=== PATIENT | male | born 1990 | race African-American/Black ===

== ENCOUNTER 2019-07-22 12:01 | Emergency (ER) | payer OTHER, SELFPAY ==
--- NOTE | ~2019-07-22 | XR_ITS ---
EXAMINATION: XR tibia fibula LT 2V DATE: 07/22/2019 12:55 INDICATION: Left lower leg injury and pain. TECHNIQUE: 2 views of left tibia and fibula were obtained. COMPARISON: None. FINDINGS: Bone alignment is normal. No fracture. The ankle joint is normal. IMPRESSION: 1. Normal left tibia and fibula. Reviewed, dictated and finalized at location A.
--- NOTE | ~2019-07-22 | XR_ITS ---
EXAMINATION: XR femur LT min 2V DATE: 07/22/2019 12:55 INDICATION: Left thigh injury and pain. TECHNIQUE: 2 views of left femur on 4 radiographs were obtained. COMPARISON: None. FINDINGS: Bone alignment is normal. No fracture. There is mild left hip osteoarthritis. There is mild osteoarthritis of medial compartment of the knee. IMPRESSION: 1. Mild polyarticular osteoarthritis. Reviewed, dictated and finalized at location A.
--- NOTE | ~2019-07-22 | XR_ITS ---
EXAMINATION: XR knee LT 3V DATE: 07/22/2019 12:55 INDICATION: Left knee injury and pain. TECHNIQUE: 3 views of left knee were obtained. COMPARISON: None. FINDINGS: Bone alignment is normal. No fracture. There is mild osteoarthritis of medial compartment. There is no knee joint effusion. IMPRESSION: 1. Mild left knee osteoarthritis. Reviewed, dictated and finalized at location A.
[2019-07-22 12:10] VITALS: BP 105/60; PULSE 62; RESP 18; TEMP 36.3; O2SAT 100
--- NOTE | 2019-07-22 12:34 | ED.LOWEXIN ---
HPI - Extremity Injury (Lower) General Chief Complaint: Extremity Injury, Lower Stated Complaint: left knee injury Time Seen by Provider: 07/22/19 12:13 Source: patient Mode of arrival: wheelchair Limitations: no limitations History of Present Illness HPI Narrative: This is a 28 year old male that presents to the ER for left knee injury yesterday. Reports he twisted the knee yesterday and it popped out of place. Reports history of similar occurrence in the past. Reports he has not been able bear weight on the leg due to pain. Denies other injuries, weakness, or numbness. Related Data Home Medications Medication Instructions Recorded Confirmed No Home Medications 07/22/19 07/22/19 Allergies Allergy/AdvReac Type Severity Reaction Status Date / Time No Known Allergies Allergy Verified 07/22/19 12:11 Review of Systems Review of Systems: Narrative: CONSTITUTIONAL: Denies fever MUSCULOSKELETAL: Reports joint pain, and myalgia. NEUROLOGIC: Denies numbness, or weakness. All systems reviewed & are unremarkable except as noted in HPI and below PMFSH Past Medical History Medical History (Updated 07/22/19 @ 13:39 by Betty Cuello PA-C) No active medical problems Social History Social History (Updated 07/22/19 @ 12:35 by Betty Cuello PA-C) Substance use: never Exam Narrative: Exam Narrative: GENERAL: Well-appearing, well-nourished, and in no acute distress. HEAD: Normocephalic, atraumatic. EYES: EOMI. EXTREMITIES: Normal range of motion, except decreased ROM in the left knee due to pain. No edema or obvious deformity. Normal sensation. Normal DP pulses SKIN: Warm, dry, no rash. NEURO: No focal deficits. Alert and oriented x3. PSYCH: Normal mood and affect Course Vital Signs Vital signs: Vital Signs Temperature 97.4 F L 07/22/19 12:10 Pulse Rate 62 07/22/19 12:10 Respiratory Rate 18 07/22/19 12:10 Blood Pressure 105/60 07/22/19 12:10 Pulse Oximetry 100 07/22/19 12:10 Temperature 97.4 F L 07/22/19 12:10 Pulse Rate 62 07/22/19 12:10 Respiratory Rate 18 07/22/19 12:10 Blood Pressure 105/60 07/22/19 12:10 Pulse Oximetry 100 07/22/19 12:10 MDM - Extremity Injury (Lower) MDM Narrative Medical decision making narrative: Patient presents the emergency department after left knee injury yesterday. Reports twisting the knee and feeling a pop. Left knee, tib-fib, and femur x-rays are without acute changes. Patient placed in a knee immobilizer and given crutches. He was instructed to rest, ice, elevate and take [id number] pain medication as needed. He is to follow-up with orthopedics. Patient was given warnings to return to the ER Imaging Data Radiologist's impression: ITS Impressions Knee X-Ray 07/22/19 12:57 IMPRESSION: 1. Mild left knee osteoarthritis. Tibia/Fibula X-Ray 07/22/19 12:58 IMPRESSION: 1. Normal left tibia and fibula. Femur X-Ray 07/22/19 12:59 IMPRESSION: 1. Mild polyarticular osteoarthritis. Critical Care Time Critical Care Time Critical Care Time: No Discharge Plan Discharge Clinical Impression: Left knee sprain Qualifiers: Encounter type: initial encounter Involved ligament of knee: unspecified ligament Qualified Code(s): S83.92XA - Sprain of unspecified site of left knee, initial encounter Patient Disposition: Home, Self-Care Condition: Stable Instructions: Knee Sprain (ED) Additional Instructions: Return to the ER if you experience fever, redness and swelling of your leg, or any other symptoms that are concerning to you Wear knee immobilizer and use crutches. No weight on the affected leg. Ice and elevate extremity. Pain medication as needed and directed. Follow up with orthopedics Prescriptions: No Action No Home Medications RF: 0 Follow-up/Referrals: Choco Jalloh MD [Physician] - 1 Week PHYSICIAN,BEATER ENGINEER HELPER [Primary Care Provider] -
[2019-07-22 14:24] VITALS: BP 112/70; PULSE 80; RESP 20; TEMP 36.7; O2SAT 99
== END 2019-07-22 14:26 | disposition home or self-care (01) ==
PROVIDERS: Emergency Provider Emergency Medicine
DX: S83.92XA Sprain of unspecified site of left knee, initial encounter (principal); M17.12 Unilateral primary osteoarthritis, left knee; X50.9XXA Other and unspecified overexertion or strenuous movements or postures, initial encounter
CPT/HCPCS: 73552; 73562; 73590; 99284; A9270

== ENCOUNTER 2020-03-31 12:56 | Emergency (ER) | payer OTHER, SELFPAY ==
[2020-03-31 12:58] VITALS: BP 132/66; PULSE 80; RESP 18; TEMP 37; O2SAT 99
[2020-03-31 13:43] LABS: Add Urine Microscopic? YES; Appearance Urine Clear (Clear); Bilirubin Urine Negative (Negative); Blood Urine 3+ (Negative); Color Urine Yellow (Yellow); Glucose Urine UA Negative (Negative); Ketones Urine Negative (Negative); Leukocyte Esterase Ur Negative LEU/UL (Negative); Mucus Urine Rare /lpf; Nitrate Urine Negative (Negative); Protein Urine Negative (Negative); RBC Urine >75 /hpf (0-2); Specific Grav Ur 1.015 (1.001-1.035); Urobilinogen Urine Negative mg/dL (<2.0)
[2020-03-31] MEDS: cefTRIAXone 1 GM VIAL 500 GM IM (14:02)
[2020-03-31] MEDS: LIDOCAINE HCL 1% LOCAL INJ 10 ML VIAL 2.1 ML XX (14:06)
--- NOTE | 2020-03-31 14:52 | ED.GENADULT ---
HPI - General Adult General Chief complaint: Urogenital-Male Stated complaint: BLOOD IN URINE Time Seen by Provider: 03/31/20 13:12 History of Present Illness HPI narrative: Patient is a 29-year-old male who presents to the ER with blood in his ejaculate after vigorously masturbating yesterday evening. Patient reports upon waking up today he masturbated again to see if the problem had resolved. There is no blood in his ejaculate at that time however a little later a small red blood came out of his urethra. He denies any dysuria or testicular discomfort. He does report that he had unprotected sex about 3 days ago with another individual. He contacted that individual who informed him that she does not believe that she has any sexually transmitted infections but she did test positive for COVID-19 today. Patient is having no runny nose/sore throat/productive cough. Related Data Allergies Allergy/AdvReac Type Severity Reaction Status Date / Time No Known Allergies Allergy Verified 07/22/19 12:11 Review of Systems Constitutional: Constitutional: Denies chills, Denies fever(s) and Denies weakness Gastrointestinal: Gastrointestinal: Denies abdominal pain, Denies nausea and Denies vomiting Genitourinary: Genitourinary: Denies hematuria, Denies dysuria, Denies penile discharge and Denies testicular pain Comments: Blood in ejaculate PMFSH Past Medical History Medical History (Updated 03/31/20 @ 14:57 by Hemant Brown MD) No active medical problems Surgical History Surgical History (Updated 03/31/20 @ 14:55 by Hemant Brown MD) No history of previous surgery Social History Social History (Updated 03/31/20 @ 14:55 by Hemant Brown MD) Smoking status: Current every day smoker Substance use: never Exam Narrative: Exam Narrative: GENERAL: Well-appearing, well-nourished, and in no acute distress. HEAD: Normocephalic, atraumatic. : Normal appearing external genitalia without urethral discharge or blood, no tenderness over the testicles or vas deferens. EXTREMITIES: Normal range of motion. Normal strength. SKIN: Warm, dry, no rash. NEURO: Alert and oriented x3. PSYCH: Normal mood and affect. Course Course Emergency Course: Patient received ceftriaxone IM. Will treat with doxycycline for the next 7 days per the new guidelines of CDC for STD treatment. Patient will not be Covid tested as he is only 2 to 3 days exposed. Discussed with him he needs at least 10 days of isolation. He should contact his PCP for testing should he develop symptoms. Discussed that he should avoid his family were isolated and certainly not celebrate Juan M with his children are explained to family. Vital Signs Vital signs: Vital Signs Temperature 98.6 F 03/31/20 12:58 Pulse Rate 80 03/31/20 12:58 Respiratory Rate 18 03/31/20 12:58 Blood Pressure 132/66 03/31/20 12:58 Pulse Oximetry 99 03/31/20 12:58 Temperature 98.6 F 03/31/20 12:58 Pulse Rate 80 03/31/20 12:58 Respiratory Rate 18 03/31/20 12:58 Blood Pressure 132/66 03/31/20 12:58 Pulse Oximetry 99 03/31/20 12:58 Medical Decision Making Vital Signs Vital Signs: Vital Signs Temperature 98.6 F 03/31/20 12:58 Pulse Rate 80 03/31/20 12:58 Respiratory Rate 18 03/31/20 12:58 Blood Pressure 132/66 03/31/20 12:58 Pulse Oximetry 99 03/31/20 12:58 Temperature 98.6 F 03/31/20 12:58 Pulse Rate 80 03/31/20 12:58 Respiratory Rate 18 03/31/20 12:58 Blood Pressure 132/66 03/31/20 12:58 Pulse Oximetry 99 03/31/20 12:58 Lab Data Labs: Lab Results 03/31/20 03/31/20 Range/Units 13:32 13:33 Urine Color Yellow (Yellow) Urine Appearance Clear (Clear) Urine pH 6.0 (5.0-9.0) Ur Specific [place] 1.015 (1.001-1.035) Urine Protein Negative (Negative) mg/dL Urine Glucose (UA) Negative (Negative) mg/dL Urine Ketones Negative (Negative) mg/dL Ur Blood (Man) 3+ H (Negati
== END 2020-03-31 15:08 | disposition home or self-care (01) ==
PROVIDERS: Emergency Provider Emergency Medicine; Referring Provider Emergency Medicine
DX: R36.1 Hematospermia (principal); F17.200 Nicotine dependence, unspecified, uncomplicated
CPT/HCPCS: 81001; 87491; 87591; 96372; 99283; J0696

== ENCOUNTER 2020-06-02 13:27 | Emergency (ER) | payer OTHER, SELFPAY ==
[2020-06-02] VITALS (10 sets, daily range): BP systolic 127–149; BP diastolic 67–70; PULSE 57–73; RESP 12–20; TEMP 36.6; O2SAT 99–100
--- NOTE | ~2020-06-02 | XR_ITS ---
XR chest 2V DATE: 06/02/2020 14:13 INDICATION: Generalized intermittent chest pain TECHNIQUE: PA and lateral views COMPARISON: None FINDINGS: Normal heart size. No hilar or mediastinal enlargement. No pulmonary infiltrate or consolid ation, pleural effusion or pulmonary vascular congestion or pneumothorax. Included skeletal structures are unremarkable. IMPRESSION: Negative Reviewed, dictated and finalized at location A. STRY NURSE IMPRESSION: Negative
--- NOTE | 2020-06-02 13:33 | ECG_ITS ---
Measurements Intervals [place] Rate: 60 P: 67 VT: 147 QRS: 70 QRSD: 89 T: 58 QT: 379 QTc: 379 Interpretive Statements SINUS RHYTHM NONSPECIFIC ST ELEVATION IN DIFFUSE LEADS BASELINE ARTIFACT- V2 BORDERLINE ECG Electronically Signed On 06-02-2020 13:43:51 [employer] by Bobo Fitch D.O.
[2020-06-02 13:43] LABS: Basophils Percent Auto 0.3 % (0.2-1.2); Eosinophils Percent Auto 0.8 % (0-4.4); Hematocrit 42.7 % (42.0-52.0); Immature Granulocyte Absolute 0.01 K/mm3 (0.00-0.031); Immature Granulocyte Percent A 0.3 % (0-0.5); Lymphocytes Absolute Auto 1.68 K/mm3 (0.9-3.2); Lymphocytes Percent Auto 42.4 % (18.3-44.2); Mean Corpuscular HGB Conc 32.8 g/dl (32-36); Mean Corpuscular Hemoglobin 27.7 pg (26-34); Mean Corpuscular Volume 84.4 fl (80-100); Mean Platelet Volume 10.5 fl (7.4-10.4); Monocytes Absolute Auto 0.3 K/mm3 (0.1-0.6); Monocytes Percent Auto 8.6 % (2.6-8.5); Neutrophils Absolute Auto 1.9 K/mm3 (1.3-6.7); Neutrophils Percent Auto 47.6 % (45.5-73.1); Platelet Count Result 173 k/mm3 (150-375); Red Blood Count 5.06 M/mm3 (4.6-6.20); Red Cell Distribution Width 13.3 % (11.5-14.5)
[2020-06-02 13:53] LABS: INR 0.9; Prothrombin Time 12.6 Seconds (11.1-14.7)
[2020-06-02 13:54] LABS: Partial Thromboplastin Time 27.5 SECONDS (22.3-36.8)
[2020-06-02 13:55] LABS: Anion Gap 5 mmol/L (8-16); Blood Urea Nitrogen 14 mg/dL (9-20); Calcium 8.8 mg/dL (8.4-10.2); Carbon Dioxide 28 mmol/L (22-30); Chloride 105 mmol/L (98-107); Estimated CRCL calculation 78 ml/min; Estimated Glomerular Filt Rate > 60; Glucose 133 mg/dL (75-110); Potassium 3.8 mmol/L (3.4-5.0); Sodium 138 mmol/L (137-145)
[2020-06-02 14:07] LABS: Troponin I < 0.012 ng/mL (0.000-0.034)
[2020-06-02] MEDS: PANTOPRAZOLE 40 MG TABLET PO (16:01)
--- NOTE | 2020-06-02 16:29 | ED.CHESTPAIN ---
HPI - Chest Pain General Chief Complaint: Chest Pain Stated Complaint: Chest Pain Time Seen by Provider: 06/02/20 15:27 Source: patient Mode of arrival: ambulatory Limitations: no limitations History of Present Illness HPI narrative: Patient is a 29-year-old male sent over to emergency department for evaluation of intermittent chest pain for the last 2 days noting mild aching pain in the epigastrium patient denies any recent illness or other complaints patient was sent by primary care. On arrival patient denies any current pain. Patient also notes history of reflux. Related Data Allergies Allergy/AdvReac Type Severity Reaction Status Date / Time No Known Allergies Allergy Verified 07/22/19 12:11 Review of Systems Review of Systems: All systems reviewed & are unremarkable except as noted in HPI and below PMFSH Past Medical History Medical History No active medical problems Surgical History Surgical History No history of previous surgery Social History Social History (Updated 06/02/20 @ 16:30 by Miguel Andrews PA-C) Smoking status: Current every day smoker Substance use: never Substance use type: crack/cocaine Gender identity (if verbalized by the patient): Male Exam Narrative: Exam Narrative: GENERAL: Well-appearing, well-nourished, and in no acute distress. HEAD: Normocephalic, atraumatic. EYES: PERRLA and EOMI. ENT: Nares clear, no rhinorrhea or epistaxis. Mucous membranes moist. CHEST: Clear to auscultation. No respiratory distress. No wheezes rales or rhonchi HEART: Regular rate and rhythm. No murmur heard. Normal peripheral pulses. ABDOMEN: Soft, nontender, nondistended EXTREMITIES: Normal range of motion. No edema. SKIN: Warm, dry, no rash. NEURO: No focal deficits. Alert and oriented x3. Cranial nerves II through XII grossly PSYCH: Normal mood and affect. Course Course Emergency Course: Patient in the room no distress no high risk changes in the blood work or imaging agreeing to follow-up with primary care for further evaluation felt appropriate for outpatient reevaluation Vital Signs Vital signs: Vital Signs Temperature 97.8 F 06/02/20 13:28 Pulse Rate 64 06/02/20 13:28 Respiratory Rate 20 06/02/20 13:28 Blood Pressure 149/67 H 06/02/20 13:28 Pulse Oximetry 100 06/02/20 13:28 Temperature 97.8 F 06/02/20 13:28 Pulse Rate 57 L 06/02/20 16:30 Respiratory Rate 13 06/02/20 16:30 Blood Pressure 134/70 06/02/20 16:42 Pulse Oximetry 100 06/02/20 16:30 MDM - Chest Pain MDM Narrative Medical decision making narrative: Patients EKGs and labs are without significant high risk changes. Cardiac risk factors were reviewed. Patient is felt likely to be low risk for ACS and reasonable for further risk stratification testing as an outpatient. Pain was not sudden or maximal in onset without tearing or ripping. quality. No other signs or symptoms to suggest aortic dissection. A low-risk Wells criteria is noted. PE is felt to be unlikely. No pneumonia or URI symptoms were seen on evaluation today. Patient is felt to b reasonable for continued evaluation as an outpatient. Lab Data Result diagrams: 06/02/20 13:37 06/02/20 13:37 Labs: Lab Results 06/02/20 06/02/20 06/02/20 Range/Units 13:37 13:37 13:37 WBC 4.0 L (4.5-10.0) K/mm3 RBC 5.06 (4.6-6.20) M/mm3 Hgb 14.0 (14.0-18.0) g/dL Hct 42.7 (42.0-52.0) % MCV 84.4 (80-100) fl MCH 27.7 (26-34) pg MCHC 32.8 (32-36) g/dl RDW 13.3 (11.5-14.5) % Plt Count 173 (150-375) k/mm3 MPV 10.5 H (7.4-10.4) fl Immature Gran % (Auto) 0.3 (0-0.5) % Neut % (Auto) 47.6 (45.5-73.1) % Lymph % (Auto) 42.4 (18.3-44.2) % [place] % (Auto) 8.6 H (2.6-8.5) % Eos % (Auto) 0.8 (0-4.4) % Baso % (Auto) 0.3 (0.2-1.2) % Lymp
[2020-06-02 17:32] LABS: Troponin I < 0.012 ng/mL (0.000-0.034)
== END 2020-06-02 17:43 | disposition home or self-care (01) ==
PROVIDERS: Emergency Provider Emergency Medicine; PCP Emergency Medicine
DX: R07.9 Chest pain, unspecified (principal); F17.200 Nicotine dependence, unspecified, uncomplicated
CPT/HCPCS: 36415; 71046; 80048; 84484; 85025; 85610; 85730; 93005; 99284; A9270

== ENCOUNTER → 2020-08-22 08:56 | Outpatient (CLI) | payer OTHER, SELFPAY ==
--- NOTE | ~2020-08-22 | XR_ITS ---
XR chest 2V DATE: 08/22/2020 09:15 INDICATION: Chest tightness, shortness of breath TECHNIQUE: PA and lateral views COMPARISON: 06/02/2020 PA and lateral views FINDINGS: Normal heart size. No hilar or mediastinal enlargement. Bilateral hyperinflation. No pulmon gonzález infiltrate or consolidation, pleural effusion or pulmonary vascular congestion or pneumothorax. IMPRESSION: No active cardiopulmonary disease Reviewed, dictated and finalized at location A.
== END ==
PROVIDERS: PCP Emergency Medicine; Visit Provider Emergency Medicine
DX: R07.89 Other chest pain (principal); R06.02 Shortness of breath
CPT/HCPCS: 71046

== ENCOUNTER 2021-07-07 13:47 | Emergency (ER) | payer OTHER, SELFPAY ==
--- NOTE | ~2021-07-07 | CT_ITS ---
EXAMINATION: CT abdomen pelvis w con DATE: 07/07/2021 15:46 INDICATION: Right lower quadrant abdominal pain TECHNIQUE: Computed tomography (CT) of the abdomen and pelvis was performed with 100 CC Omnipaque 350 intravenous contrast. Automated exposure control and iterative reconstruction technique were employe d. Exam dose: 690.37 mGy-cm total exam DLP. COMPARISON: None. FINDINGS: The lung bases are clear. Normal heart size. No pericardial or pleural effusion. The liver, gallbladder, bile ducts, spleen, pancreas, pancreatic duct, and adrenal glands and kidneys appear normal. No urinary tract calculus or hydroureteronephrosis. The urinary bladder and prostate gland are unremarkable. Small fat-containing left inguinal hernia. There are numerous nondilated fluid containing small bowel segments with no bowel wall thickening, pn eumatosis or intraperitoneal free air. Normal appendix. No bowel obstruction, bowel wall thickening, pneumatosis or intraperitoneal free air . IMPRESSION: Normal appendix Nondilated fluid containing small bowel segments which may be due to enteritis No bowel obstruction or intraperitoneal free air Small fat-containing left inguinal hernia Reviewed, dictated and finalized at Location A. Reviewed, dictated and finalized at location A.
--- NOTE | ~2021-07-07 | XR_ITS ---
EXAMINATION: XR chest 2V EXAM DATE: 07/07/2021 14:56 INDICATION: Cough,nasal congestion,fatigue, worsening over past 3 months. TECHNIQUE: Frontal and lateral projections of the chest obtained and reviewed. Comparison is made to prior examination from 08/22/2020. FINDINGS: The lungs are clear. There are no pleural effusions. The cardiomediastinal silhouette is within normal limits. There is no pneumothorax suspected. The bones and soft tissues are unremarka ble. IMPRESSION: No acute cardiopulmonary findings. Reviewed, dictated and finalized at location B.
[2021-07-07 14:12] VITALS: BP 108/94; PULSE 63; RESP 18; TEMP 37.2; O2SAT 100
--- NOTE | 2021-07-07 14:29 | ED.URI ---
HPI - URI/Sore Throat General Chief Complaint: Upper Respiratory Infection Stated Complaint: abd pain Time Seen by Provider: 07/07/21 14:15 History of Present Illness HPI Narrative: Patient is a 30 year old male with a PMHx GERD who presents for 2 months of sinus drainage and pressure with some fatigue today. Patient saw his MD this morning (Dr. Michael Kingsley) who ordered labs and a chest XR, but was concerned given some RLQ tenderness on exam. Patient denies any abdominal pain at rest, nausea, vomiting, fevers, chills, diarrhea, constipation. Patient is mostly concerned over his congestion and fatigue. Additionally reports intermittent epigastric burning after meals, worse when laying flat. States his pain is similar to GERD flare ups but has not taken anything for the pain. Related Data Allergies Allergy/AdvReac Type Severity Reaction Status Date / Time No Known Allergies Allergy Verified 07/22/19 12:11 Review of Systems Review of Systems: All systems reviewed & are unremarkable except as noted in HPI and below PMFSH Past Medical History Medical History No active medical problems Surgical History Surgical History No history of previous surgery Social History Social History (Updated 06/02/20 @ 16:30 by Miguel Andrews PA-C) Smoking status: Current every day smoker Substance use: never Substance use type: crack/cocaine Gender identity (if verbalized by the patient): Male Exam Const: General: healthy appearing and no acute distress Orientation/consciousness: patient oriented x3 HENMT: Head: normal to inspection Mouth: Yes moist mucous membranes Throat: posterior oropharynx normal Eyes: Conjunctivae: conjunctivae normal Neck: Neck: normal visual inspection and no lymphadenopathy Chest: Chest palpation & inspection: normal inspection of the chest Resp: Effort & Inspection: normal respiratory effort Auscultation: clear to auscultation bilaterally, no rales, no rhonchi and no wheezes Cardio: Rate: regular rate Rhythm: regular rhythm Heart sounds: no murmurs GI: GI Palp: Yes Soft to palpation, Yes Tenderness to palpation present (GI) (mild tenderness on palpation of RLQ) and No Rebound tenderness present Skin: General skin exam: normal color Neuro: General: patient oriented x3 and moves all extremities Speech: normal speech Extrem: General: normal to inspection and no edema Psych: Appearance: grossly normal Mental Status: mental status grossly normal Thought content: Yes Normal thought content present Course Vital Signs Vital signs: Vital Signs Temperature 99 F 07/07/21 14:12 Pulse Rate 63 07/07/21 14:12 Respiratory Rate 18 07/07/21 14:12 Blood Pressure 108/94 H 07/07/21 14:12 Pulse Oximetry 100 07/07/21 14:12 Temperature 99 F 07/07/21 14:12 Pulse Rate 59 L 07/07/21 16:59 Respiratory Rate 16 07/07/21 16:59 Blood Pressure 132/74 07/07/21 16:59 Pulse Oximetry 100 07/07/21 16:59 MDM - URI/Sore Throat MDM Narrative Medical decision making narrative: 30 year old male with a history of GERD who presents from PCP for evaluation of RLQ abdominal pain in addition to sinus pressure and fatigue. Labs unremarkable, EKG non-ischemic, CXR with NAD, and CT abd/pelvis without evidence of appendicitis. Will trial Maalox for suspected GERD and likely discharge to follow up with PMD. Pt refusing meds, states his pain has resolved and he is hungry. Will d/c home to follow up with Dr. Olson. Encouraged him to keep appointment for further workup of sinus drainage and fatigue. Lab Data Result diagrams: 07/07/21 14:55 07/07/21 14:55 Labs: Lab Results 07/07/21 07/07/21 Range/Units 14:55 14:55 WBC 6.8 (4.5-10.0) K/mm3 RBC 5.13 (4.6-6.20) M/mm3 Hgb 14.2 (14.0-18.0) g/dL Hct 43.6 (42.0-52.0) % MCV 85.0
--- NOTE | 2021-07-07 14:38 | ECG_ITS ---
Measurements Intervals [place] Rate: 57 P: 68 ME: 154 QRS: 49 QRSD: 95 T: 48 QT: 396 QTc: 386 Interpretive Statements SINUS BRADYCARDIA EARLY REPOLARIZATION NORMAL ECG COMPARED TO ECG 06/02/2020 13:32:46 SINUS BRADYCARDIA NOW PRESENT Electronically Signed On 07-07-2021 17:42:46 CDT by Jesus Melendez M.D.
[2021-07-07 15:02] LABS: Basophils Percent Auto 0.1 % (0.2-1.2); Eosinophils Absolute Auto 0.1 K/mm3 (0-0.3); Eosinophils Percent Auto 0.7 % (0-4.4); Hematocrit 43.6 % (42.0-52.0); Hemoglobin 14.2 g/dL (14.0-18.0); Immature Granulocyte Absolute 0.02 K/mm3 (0.00-0.031); Immature Granulocyte Percent A 0.3 % (0-0.5); Lymphocytes Absolute Auto 2.45 K/mm3 (0.9-3.2); Lymphocytes Percent Auto 35.9 % (18.3-44.2); Mean Corpuscular HGB Conc 32.6 g/dl (32-36); Mean Corpuscular Hemoglobin 27.7 pg (26-34); Mean Platelet Volume 10.1 fl (7.4-10.4); Monocytes Absolute Auto 0.6 K/mm3 (0.1-0.6); Monocytes Percent Auto 8.9 % (2.6-8.5); Neutrophils Absolute Auto 3.7 K/mm3 (1.3-6.7); Neutrophils Percent Auto 54.1 % (45.5-73.1); Platelet Count Result 183 k/mm3 (150-375); Red Blood Count 5.13 M/mm3 (4.6-6.20); Red Cell Distribution Width 13.4 % (11.5-14.5); White Blood Count 6.8 K/mm3 (4.5-10.0)
[2021-07-07 15:13] LABS: Alanine Aminotransferase 39 U/L (4-50); Albumin Level 4.6 g/dL (3.5-5.1); Alkaline Phosphatase 43 U/L (38-126); Anion Gap 9 mmol/L (8-16); Aspartate Amino Transferase 42 U/L (17-59); Bilirubin,Total 0.8 mg/dL (0.2-1.3); Blood Urea Nitrogen 11 mg/dL (9-20); Calcium 8.9 mg/dL (8.4-10.2); Carbon Dioxide 28 mmol/L (22-30); Chloride 102 mmol/L (98-107); Estimated CRCL calculation 90 ml/min; Estimated Glomerular Filt Rate > 60; Glucose 90 mg/dL (65-110); Lipase 162 U/L (23-300); Potassium 3.5 mmol/L (3.4-5.0); Sodium 139 mmol/L (137-145)
--- NOTE | 2021-07-07 16:43 | PC.NURSE ---
Pt reported that he is feeling well and is ready to eat something . States he doesn't feel like he needs any medication. Provider made aware.
[2021-07-07 16:59] VITALS: BP 132/74; PULSE 59; RESP 16; O2SAT 100
== END 2021-07-07 17:01 | disposition home or self-care (01) ==
PROVIDERS: Physician Assistant; Emergency Provider Emergency Medicine; PCP Emergency Medicine
DX: J06.9 Acute upper respiratory infection, unspecified (principal); F17.210 Nicotine dependence, cigarettes, uncomplicated; R00.1 Bradycardia, unspecified
CPT/HCPCS: 36415; 71046; 74177; 80053; 83690; 85025; 93005; 99284; Q9967

== ENCOUNTER 2021-09-09 01:02 | Day surgery (SDC) | payer OTHER, SELFPAY ==
[2021-09-01 16:37] VITALS: BMI 29.9
--- NOTE | 2021-09-03 14:08 | PC.NURSE ---
Report to the Outpatient Waiting Room, entrance under the green pavilion located off [facility], at time _0700_ on date _09-09-21_. OR Time: __0900_. - You and your visitor will be asked a series of questions to screen for COVID 19 for your protection. - Only one visitor is allowed at this time. - The patient visitor is requested to leave or wait in car when not with patient. - A mask is required within the hospital. Patients may have clear liquids (water, carbonated beverages, clear teas, apple juice) until 3 hours prior to surgery with a maximum of 20 ounces. - No food from midnight until time of surgery Take the following medications with a SIP of water the morning of surgery: ____None Medications to discontinue per physician Multivitamin Date to take last htki 5-42-13 Please no make-up, nail citizen of [place], hairspray, perfume, deodorant, or body powder the day of surgery. No jewelry (including any body piercings) or valuables the day of surgery, leave them at home. Please take a shower or bath the night before, or the morning of, surgery with an antibacterial soap. Wear comfortable, loose fitting clothing. Children are encouraged to wear pajamas. - Jewelry must be removed prior to entering the operating room. Rings and piercings that are not removed may be cut off. - The hospital will not accept responsibility for valuables. - Please leave all valuables, including medications, at home the day of surgery. If you are going home after surgery, a licensed auto driver must drive you home. - NO public transportation without another adult. - We recommend that an adult stay with you for 24 hours following discharge. - We also recommend that you do not drive, make important decision, drink alcoholic beverages, or take any drugs that were not prescribed by your health care provider for at least 24 hours after your discharge time. Follow any additional instructions given to you from your surgeon. If you or anyone in your household have experienced Covid symptoms in the past week, please notify your surgeon or the nurse liaison at the phone number below for possible testing. Telephone instructions given to ___Patient and asked if any additional questions and then verbalized understanding. Patient advised to call surgeon office or pre surgery nurse liaison [phone] if any additional questions.
[2021-09-09] VITALS (7 sets, daily range): BP systolic 108–124; BP diastolic 53–90; PULSE 47–82; RESP 14–18; TEMP 36.2–37.3; O2SAT 99–100; BMI 29.3
--- NOTE | 2021-09-09 07:15 | WPDHPUPDATE1 ---
History and Physical Update Update Date/Time: 09/09/21 07:15 History and Physical has been reviewed, including an updated exam of the patient. There are NO changes in the patient's condition. Risks, benefits, and alternatives have been discussed and questions answered. Patient agrees to proceed with procedure.
[2021-09-09] MEDS: LACTATED RINGERS 1,000 ML 30 ML IV CONT ×2 (07:57→11:15)
[2021-09-09] MEDS: KETOROLAC 15 MG/ML VIAL (*BKC) IV PUSH (07:58)
[2021-09-09] MEDS: ACETAMINOPHEN 500 MG TABLET 1000 MG PO (07:58)
--- NOTE | 2021-09-09 09:03 | WPDANESEPPF ---
Anes - Initial Pre Proc Eval Procedure: Operation Date: 09/09/21 09:00 Proposed Procedures p Open Left Inguinal Hernia Repair with Mesh - Froylan Ramos MD Date/Time: 09/09/21 09:04 Surgeon: Froylan Ramos MD Pre Op Diagnosis: left inguinal hernia Patient Data Age: 31 Gender: M Height: 1.91 m Weight: 106.6 kg Last Vital Signs Temp 99.1 F 09/09/21 07:08 Pulse 68 09/09/21 07:08 Resp 18 09/09/21 07:08 BP 121/90 09/09/21 07:08 Pulse Ox 99 09/09/21 07:08 O2 Del Method Room Air 09/09/21 07:08 Allergies Allergy/AdvReac Type Severity Reaction Status Date / Time No Known Allergies Allergy Verified 09/09/21 07:04 Home Medications Medication Instructions Recorded Confirmed Type multivitamin with minerals-folic 1 tablet PO DAILY 08/20/21 09/09/21 History acid 200 mcg chewable tablet (Men's Multivitamin Gummies) omeprazole 20 mg capsule,delayed 1 cap PO DAILY 09/01/21 09/09/21 History release Patient hx anesthesia problems: none Family hx anesthesia problems: none Results Review: All pre-operative results and documents have been reviewed as part of the pre-operative evaluation. [facility] Past Medical History Medical History No active medical problems Surgical History Surgical History No history of previous surgery Family History Family History Other Carcinoma of colon Diabetes mellitus Social History Social History Smoking status: Current every day smoker Alcohol intake: current Drinks per week: 7 Alcohol use details: one drink per day Substance use: never Substance use type: crack/cocaine Living arrangements: alone Gender identity (if verbalized by the patient): Male Spiritual care concerns: No Anes - Eval Final PreProcedure Day of Procedure 09/09/21 09:04 Patient weight: obese Heart: regular rate and rhythm Lungs: clear to auscultation Airway: Mallampati scale class II Neurological: alert and oriented Last oral intake: >/= 8 hours ASA classification: III Emergent: no Anesthetic plan: proceed Anesthesia type and monitoring: general GIVS and standard monitoring Results Review: All pre-operative results and documents have been reviewed as part of the pre-operative evaluation. Informed Consent: The patient's anesthetic plan and its attendant risks and benefits were discussed with the patient/family/POA. Questions were solicited and answers provided to the satisfaction of the patient/family/POA.
[2021-09-09] MEDS: ceFAZolin 2 GM/D5W 50 ML 2 GM/50 ML BAG IVPB (09:23)
[2021-09-09] MEDS: LIDO 1%/EPINEPHRINE/PF 1:200,000 30 ML VIAL XX (09:53)
--- NOTE | 2021-09-09 11:17 | P.OP_ITS ---
Procedure Note - Detailed Date of Procedure 09/09/21 Pre-op Diagnosis left inguinal hernia Post-op Diagnosis Same Procedure Performed Left inguinal hernia repair Surgeon Froylan Ramos MD Senior Network Administrator Mirna PERSAUD Anesthesia General (G IV S), Local (1% lidocaine with epinephrine) and Other (Xaracoll) Indications Patient was seen in the office in had left groin pain with a bulge. On examination he had a reducible left inguinal hernia. He is taken to surgery now for repair. Findings Showed a direct left inguinal hernia. There was also a lipoma of the cord which was excised and discarded. Description of Procedure The patient was taken to surgery and induced into general anesthesia. Prep and drape of the left groin and genitalia was carried out. The proposed incision was marked on the skin. Local anesthesia was infiltrated into the skin and the deeper subcutaneous tissues. Incision was made and dissection was carried down through the subcutaneous. Crossing veins were cauterized and divided. Dissection was carried to the external oblique aponeurosis. Additional local was infiltrated deep to the aponeurosis in the area of the inguinal canal and its contents. The aponeurosis was then opened laterally and extended medially through the external ring. Care was taken to avoid injury to the ileoinguinal nerve which was left attached to the cord throughout the surgery. The leaves of the aponeurosis were dissected free from the spermatic cord. We then mobilized the cord medially on a [place] drain. The cord was further mobilized back to the internal ring. The direct hernia was able to be found. I dissected in the spermatic cord and found a sizable lipoma. This was dissected free from the spermatic cord. It was dissected back to the internal ring and there amputated. It was discarded. We then turned our attention to the direct inguinal hernia. It was fairly good-sized being about 3 cm in diameter. I dissected the hernia free circumferentially. I then scored through the transversalis fascia circumferentially just above the neck of the hernia. I dunked the hernia into the retroperitoneum. I then repaired the hernia using the Bassini repair technique. Interrupted 0 Ethibond sutures were used to close the transversalis fascia to the reflection of the inguinal ligament. We started medially and sutured transversalis fascia 1st to the pubic tubercle. Then to the reflection of the inguinal ligament with interrupted sutures back to the internal ring. The internal ring was reapproximated so that it would barely admit the tip of a clamp. I then placed Xaracoll over the repair. The spermatic cord and ilioinguinal nerve were then placed back in position. The external oblique aponeurosis was closed with interrupted 3-0 Vicryl suture. Second pieces Xaracoll was placed over the aponeurosis. Amee's fascia was closed with interrupted 3-0 Vicryl suture. The last piece of Xaracoll was then placed in the subcutaneous. The skin was loosely approximated with subcuticular interrupted 4-0 Vicryl suture. The skin was then finally closed with a running 4-0 Monocryl skin suture. Wound was dressed with Exofin surgical adhesive. The patient was awakened and taken to recovery in good condition. Sponge and needle counts were correct x2. Estimated Blood Loss -5.0 Drains No Packing No Pathology None sent Complications No immediate complications Condition Stable Disposition Same day [facility] Billing Surgery - Charge Forward: Surgery Billing (Left inguinal hernia repair)
== END 2021-09-09 12:35 | disposition home or self-care (01) ==
PROVIDERS: PCP Emergency Medicine; Visit Provider Surgery
PROC: (CPT 49505; principal; 2021-09-09 09:00)
DX: K40.90 Unilateral inguinal hernia, without obstruction or gangrene, not specified as recurrent (principal); D17.6 Benign lipomatous neoplasm of spermatic cord; F17.200 Nicotine dependence, unspecified, uncomplicated; E66.9 Obesity, unspecified; Z68.29 Body mass index [BMI] 29.0-29.9, adult
CPT/HCPCS: 49505; A9270; J0690; J1885; J2250; J2704; J3010; J7120